=== PATIENT | male | born 1970 | race Caucasian/White ===

== ENCOUNTER 2021-03-31 12:55 | Emergency (ER) | payer OTHER ==
--- NOTE | 2021-03-31 14:10 | RAD REPORT ---
EXAM DESCRIPTION: RAD - Humerus Right - 03/31/2021 2:02 pm CLINICAL HISTORY: Right arm pain status post fall FINDINGS: No fracture is seen
--- NOTE | 2021-03-31 14:19 | EDPHYS ---
Physician Documentation [facility] Name: Charlie Webster Age: 50 yrs Sex: Male : 1970 Arrival Date: 03/31/2021 Time: 12:57 Bed 12 Private MD: ED Physician Luis Lemus HPI: 03/31 14:17 This 50 yrs old Male presents to ER via Ambulatory with complaints of Fall kb Injury, Arm Injury, Shoulder Injury. 14:17 Details of fall: The patient fell from an upright position, while walking. Onset: The kb symptoms/episode began/occurred just prior to arrival. Associated injuries: The patient sustained right tricep, painful injury. Severity of symptoms: At their worst the symptoms were moderate, in the emergency department the symptoms are unchanged. The patient has not experienced similar symptoms in the past. The patient has not recently seen a physician. Pt reports he was trying to catch a osei that was pulled out of his hands and fell onto the deck with outstretched hands. States he felt something happen to posterior arm just below shoulder. Reports pain that is worse with movement. Pt has full rom of elbow and wrist. . Historical: - Allergies: 13:01 Lisinopril; cough; tw2 - Home Meds: 13:01 atorvastatin oral [Active]; "something for blood pressure with a diuretic" [Active]; tw2 - PMHx: 13:01 hypertension; Hypercholesterolemia; tw2 - PSHx: 13:01 Appendectomy; tw2 - Immunization history:: Client reports having NOT received the Covid vaccine. - Social history:: Smoking status: Patient denies any tobacco usage or history of. ROS: 14:13 Constitutional: Negative for fever, chills, and weight loss. kb 14:13 MS/extremity: Positive for injury or acute deformity, pain, tenderness, of the right tricep. 14:13 All other systems are negative. Exam: 14:15 Constitutional: This is a well developed, well nourished patient who is awake, alert, kb and in no acute distress. Head/Face: Normocephalic, atraumatic. ENT: Moist Mucous membranes Respiratory: Respirations even and unlabored. No increased work of breathing, no retractions or nasal flaring. Skin: Warm, dry with normal turgor. Normal color. Neuro: Awake and alert, GCS 15, oriented to person, place, time, and situation. Moves all extremities. Normal gait. Psych: Awake, alert, with orientation to person, place and time. Behavior, mood, and affect are within normal limits. 14:15 Musculoskeletal/extremity: Extremities: grossly normal except: noted in the right tricep: decreased ROM, pain, tenderness, ROM: limited active range of motion due to pain, in the right shoulder, Circulation is intact in all extremities. Sensation intact. Vital Signs: 12:59 BP 130 / 93; Pulse 92; Resp 17; Temp 97.9(TE); Pulse Ox 98% on R/A; Weight 106.59 kg tw2 (R); Height 5 ft. 9 in. (175.26 cm) (R); Pain 9/10; 12:59 Body Mass Index 34.70 (106.59 kg, 175.26 cm) tw2 MDM: 13:17 Patient medically screened. kb 14:11 Data reviewed: vital signs, nurses notes. Data interpreted: Pulse oximetry: on room air kb is 98 %. Interpretation: normal. Counseling: I had a detailed discussion with the patient and/or guardian regarding: the historical points, exam findings, and any diagnostic results supporting the discharge/admit diagnosis, radiology results, the need for outpatient follow up, a orthopedic surgeon, to return to the emergency department if symptoms worsen or persist or if there are any questions or concerns that arise at home. 03/31 13:06 Order name: Humerus Right XRAY; Complete Time: 14:11 kb 03/31 13:26 Order name: Sling; Complete Time: 13:26 tw2 Administered Medications: 14:45 Drug: Ibuprofen 800 mg Route: PO; jl7 15:00 Follow up: Response: No adverse reaction jl7 Disposition Summary: 03/31/21 14:19 Discharge Ordered Location: Home kb Condition: Stable kb Diagnosis - Pain in right upper arm kb Followup: kb - With: Emergency Department - When: As needed - Reason: Worsening of condition Followup: kb - With: Private Physician - When: 2 - 3 days - Reason: Recheck today's complaints, Continuance of care, Re-evaluation by your physician Discharge Instructions: - Discharge Summary Sheet kb - Musculoskeletal Pain kb Forms: - Medication Reconciliation Form kb - Thank You Letter kb - Antibiotic Education kb - Prescription Opioid Use kb Addendum: 04/02/2021 08:36 Co-signature as Attending Physician, Luis Lemus MD I agree with the assessment and s p3 plan of care. Signatures: Dispatcher [employer] Lola Galvez, SHINGLE TRIMMER-C SHINGLE TRIMMER-Ckb Hiral Ambriz, RN RN tw2 Madi Whitfield RN RN jl7 Luis Lemus MD MD sp3 Corrections: (The following items were deleted from the chart) 03/31 13:03 13:01 Home Meds: losartan oral; tw2 tw 14:15 14:13 MS/extremity: Positive for injury or acute deformity, pain, tenderness, of the kb right shoulder, kb
--- NOTE | 2021-03-31 14:19 | ER ---
Nurse's Notes [facility] Name: Charlie Webster Age: 50 yrs Sex: Male : 1970 Arrival Date: 03/31/2021 Time: 12:57 Bed 12 Private MD: Diagnosis: Pain in right upper arm Presentation: 03/31 12:59 Chief complaint: Patient states: i was fishing this morning. the fish took the osei and tw2 i jumped out of the boat. when my hand hit the deck and felt something bad and sharp pain in my RIGHT upper arm. and now its radiating up in my into my shoulder area. Coronavirus screen: At this time, the client does not indicate any symptoms associated with coronavirus-19. Ebola Screen: Patient denies travel to an Ebola-affected area in the 21 days before illness onset. Initial Sepsis Screen: Does the patient meet any 2 criteria? No. Patient's initial sepsis screen is negative. Does the patient have a suspected source of infection? No. Patient's initial sepsis screen is negative. Risk Assessment: Do you want to hurt yourself or someone else? Patient reports no desire to harm self or others. Onset of symptoms was March 31, 2021. 12:59 Method Of Arrival: Ambulatory tw2 12:59 Acuity: AMEE 4 tw2 Triage Assessment: 13:03 General: Appears in no apparent distress. uncomfortable, Behavior is calm, cooperative, tw2 appropriate for age. Pain: Complains of pain in right arm. Musculoskeletal: Circulation, motion, and sensation intact. Range of motion: limited in right shoulder. Historical: - Allergies: 13:01 Lisinopril; cough; tw2 - Home Meds: 13:01 atorvastatin oral [Active]; "something for blood pressure with a diuretic" [Active]; tw2 - PMHx: 13:01 hypertension; Hypercholesterolemia; tw2 - PSHx: 13:01 Appendectomy; tw2 - Immunization history:: Client reports having NOT received the Covid vaccine. - Social history:: Smoking status: Patient denies any tobacco usage or history of. Screenin:49 Abuse screen: Denies threats or abuse. Denies injuries from another. Nutritional jl7 screening: No deficits noted. Tuberculosis screening: No symptoms or risk factors identified. Fall Risk None identified. Vital Signs: 12:59 BP 130 / 93; Pulse 92; Resp 17; Temp 97.9(TE); Pulse Ox 98% on R/A; Weight 106.59 kg tw2 (R); Height 5 ft. 9 in. (175.26 cm) (R); Pain 9/10; 12:59 Body Mass Index 34.70 (106.59 kg, 175.26 cm) tw2 ED Course: 12:57 Patient arrived in ED. mr 13:01 Triage completed. tw2 13:01 Arm band placed on. tw2 13:17 Lola Darby FNP-C is PHCP. kb 13:17 Luis Lemus MD is Attending Physician. kb 14:02 Humerus Right XRAY In Process Unspecified. EDMS 14:42 Madi Whitfield, RN is Primary Nurse. jl7 14:49 Patient has correct armband on for positive identification. jl7 14:49 No provider procedures requiring assistance completed. Patient did not have IV access jl7 during this emergency room visit. Administered Medications: 14:45 Drug: Ibuprofen 800 mg Route: PO; jl7 15:00 Follow up: Response: No adverse reaction jl7 Outcome: 14:19 Discharge ordered by MD. kb 14:49 Discharged to home ambulatory. jl7 14:49 Condition: stable 14:49 Discharge instructions given to patient, Instructed on discharge instructions, follow up and referral plans. Demonstrated understanding of instructions, follow-up care. 14:49 Patient left the ED. jl7 Signatures: Dispatcher [employer] EDCO Lola Darby FNP-C FNP-Harshil Yaquelin Jessica Hiral Ambriz RN RN tw2 Madi Whitfield, SHANICE RN jl7 Corrections: (The following items were deleted from the chart) 13:03 13:01 Home Meds: losartan oral; tw2 tw2
[2021-03-31] MEDS ORDERED: IBUPROFEN 400 MG TAB ONE (14:43)
[2021-03-31 15:14] VITALS: BP 130/93; TEMP 97.9; O2SAT 98
--- OUTSIDE RECORDS SUMMARY | 2021-04-06 15:22 | XMS REPORT | Continuity of Care Document ---
:1970 Author Organization [facility] t Address [address] [place] [address] Care Team Providers Name Role Phone NONE Attending Clinician Unavailable RIVENES Attending Clinician Unavailable NONE Admitting Clinician Unavailable Problems This patient has no known problems. Allergies, Adverse Reactions, Alerts This patient has no known allergies or adverse reactions. Medications This patient has no known medications. Procedures This patient has no known procedures. Encounters Start End Encounter Admission Attending Care Care Encounter Source Date/Time Date/Time Type Type Clinicians Facility Department ID 2020-02-23 Inpatient C NONE, NONE [facility] [id number] 06:00:00 [facility] 2020-05-25 2020-05-25 [id number] [place] 00:00:00 00:00:00 [facility] Results This patient has no known results.
== END 2021-03-31 14:49 | disposition home or self-care (01) ==
LOC: ER 12:55
DX: M79.621 Pain in right upper arm (principal); I10 Essential (primary) hypertension
CPT/HCPCS: 99283